=== PATIENT | female | born 1995 | race Caucasian/White ===

== ENCOUNTER → 2020-07-09 | Outpatient (REF) | LOC: COL.LAB 10:04 | DX: U07.1 COVID-19 (principal) ==

== ENCOUNTER 2020-09-30 13:39 | Outpatient (RCR) | payer OTHER | END 2020-11-20 | disposition home or self-care (01) | LOC: WSOH | DX: F41.9 Anxiety disorder, unspecified (principal); N94.6 Dysmenorrhea, unspecified; Z98.890 Other specified postprocedural states; W46.1XXA Contact with contaminated hypodermic needle, initial encounter; Y99.0 Civilian activity done for income or pay ==